=== PATIENT | female | born 2000 | race Caucasian/White ===

== ENCOUNTER 2023-08-13 09:34 | Outpatient (OUT) | payer OTHER, SELFPAY ==
--- NOTE | 2023-08-13 09:35 | US_ITS ---
[address] [address] Patient Name: RAY FOFANA MRN: [id number] date: 2000 Sex: F Assigned Patient Location: [facility] Current Patient Location: [facility] Accession/Order Number: [id number] Exam Date: 08/13/2023 09:35 Report Date: 08/13/2023 10:30 At the request of: ANU IVEY Procedure: US OB transvaginal EXAMINATION: US OB transvaginal HISTORY: MISSED MENSES COMPARISON: No relevant comparison available. FINDINGS: Transvaginal images Dasivla intrauterine gestation Gestational sac: 4.15 cm, 9 weeks 4 days CRL: 3.40 cm, 10 weeks 2 days Heart rate: 161 bpm Cervix: Closed, 4.6 cm The uterus is normal, anteverted, anteflexed The right ovary is normal. The left ovary is not visualized Clinical age: 10 weeks 6 days Clinical JARRELL: 03/04/2024 Ultrasound age: 10 weeks 2 days Ultrasound JARRELL: 03/08/2024 US/US OB transvaginal IMPRESSION: Viable dasilva intrauterine gestation measuring 10 weeks 2 days Electronically authenticated by: KIM VALE Date: 08/13/2023 10:30
== END 2023-08-13 09:35 | disposition home or self-care (01) ==
PROVIDERS: Visit Provider Obstetrics & Gynecology
DX: Z34.91 Encounter for supervision of normal pregnancy, unspecified, first trimester (principal); Z3A.10 10 weeks gestation of pregnancy; N92.6 Irregular menstruation, unspecified
CPT/HCPCS: 76817

== ENCOUNTER 2023-08-13 10:35 | Outpatient (OUT) | payer OTHER, SELFPAY ==
[2023-08-13 11:07] LABS: Basophils Percent Auto 0.4 % (0.2-2.0); Eosinophils Percent Auto 0.5 % (0.9-7.0); Estimated Average Glucose 100 mg/dL; Glycohemoglobin A1C 5.1 % (4.5-6.2); Hematocrit 38.1 % (36.0-48.0); Hemoglobin 13.1 g/dL (12.0-16.0); Immature Granulocytes Abs Auto 0.01 10^3/uL (0.00-0.03); Immature Granulocytes Pct Auto 0.1 % (0.0-0.5); Lymphocytes Absolute Auto 1.8 10^3/uL (1.2-3.8); Lymphocytes Percent Auto 24.2 % (20.5-60.0); Mean Corpuscular HGB Conc 34.4 g/dL (29.9-35.2); Mean Corpuscular Hemoglobin 30.3 pg (26.7-34.0); Mean Corpuscular Volume 88.2 fL (81.0-99.0); Mean Platelet Volume 9.5 fL (9.5-13.5); Monocytes Absolute Auto 0.6 10^3/uL (0.3-0.8); Monocytes Percent Auto 7.4 % (1.7-12.0); Neutrophils Percent Auto 67.4 % (43.0-75.0); Platelet Count 266 10^3/uL (150-450); Red Blood Count 4.32 10^6/uL (4.20-5.40); Red Cell Distribution Width 11.9 % (11.0-15.0); White Blood Count 7.4 10^3/uL (4.0-11.0)
[2023-08-14 06:10] LABS: Rubella Antibodies, IgG 1.24 index (Immune >0.99)
[2023-08-14 07:09] LABS: HBsAg Screen Negative (Negative); HCV Ab Non Reactive (Non Reactive); HIV Ab/p24 Ag Screen Non Reactive (Non Reactive)
[2023-08-14 11:12] LABS: Rapid Plasma Reagin, Quant Non Reactive titer (NonRea<1:1)
== END 2023-08-13 10:36 | disposition home or self-care (01) ==
LOC: LAB 10:38
PROVIDERS: Visit Provider Obstetrics & Gynecology
DX: Z34.91 Encounter for supervision of normal pregnancy, unspecified, first trimester (principal); Z3A.10 10 weeks gestation of pregnancy; Z36.0 Encounter for antenatal screening for chromosomal anomalies; N92.6 Irregular menstruation, unspecified
CPT/HCPCS: 36415; 76817; 83036; 85025; 86592; 86762; 86803; 86850; 86900; 86901; 87086; 87340; 87389

== ENCOUNTER 2023-09-28 21:18 | Outpatient (REF) | payer OTHER, SELFPAY ==
--- OUTSIDE RECORDS SUMMARY | 2023-09-28 21:22 | XMS_ITS | CCD ---
Author Organization [facility] Care Team Providers Care Acid Tester Name Role Phone Ivone Atkinson Attending Unavailable Dallas Singh Attending Unavailable Allergies Allergy Classification Reported Allergen(s) Allergy Type Date of Onset Reaction(s) Facility (1 source) No Known Medication Allergies; Translations: [No Known Medication Allergies] Propensity to adverse reactions (disorder) [facility] Repository Results Test Name Value Interpretation Reference Range [facility] Family Medicine Office/Clini c Noteon 01-18-2023 Family Medicine Office/Clinic Note Chief Complaint Pt in office with rash HPI Staff Duration: Yesterday New or Recurrent: new Location: diffuse Description: red raised, not painful Rash symptoms: itchy History of Present Illness Carol Ann Knight is a 22-year-old female here today for an acute visit with complaints of rash onset was yesterday. Location is diffuse to the body. Description is red, raised. She has some pruritus. She has been taking Benadryl. She has had similar rash in the past that generally is resolved with Benadryl. She denies any fevers, chills. No URI symptoms. No tongue or lip swelling. No shortness of breath. No joint pain. No known exposures?no new lotions/creams/shampoo s/detergents/perfumes. No different medications or food ingestion. No one else at home with rash. Review of Systems PHQ Score Initial Depression Screen Score: 0 ROS - Provider Constitutional: no fever, no chills, no sweats, no weakness' HEENT: no sore throat no ear pain no runny nose no congestion Respiratory: no shortness of breath, no cough Cardiovascular: no chest pain Skin: as per HPI GI: no nausea no emesis no diarrhea no constipation Physical Exam Vitals & Measurements T: 36.4 ?C(Temporal Artery) HR: 78(Peripheral) RR: 18 BP: 118/78 SpO2: 99% HT: 64 in HT: 162 cm WT: 123.5 kg WT: 271.7 lb BMI: 47.06 General: Obese female, no distress, sitting upright on exam table Eyes: Clear, normal conjunctiva, PERRLA Nose: Normal appearing, no rhinorrhea or swelling Mouth: Antigo moist mucous membranes and tongue, no oral lesions Neck: Supple, no stridor Lungs: Normal respiratory effort and clear to auscultation Cardio: Regular rate and rhythm, normal S1 and S2, no murmur, no rub Abdomen: Obese, soft Musculoskeletal: Steady independent gait Extremity: No swelling Neurologic: Grossly normal Skin: Generalized urticarial rash, erythematous and blanchable to arms, trunk, legs, and no rash to face Mental Status: Alert and oriented x3. Normal mood and affect Assessment/Plan 1. Urticarial rash (L50.9: Urticaria, unspecified) Unclear etiology of rash, likely allergic. Rx sent for prednisone taper. She will continue also her antihistamines. We discussed indications for urgent ER reevaluation. Otherwise, she will follow-up with primary team to reevaluate any persistent rash. 2. BMI 40.0-44.9, adult (Z68.41: Body mass index [BMI] 40.0-44.9, adult) The standard range for ages 18 and older is >=18.5 and < 25 kg/m2. Your BMI today was above this range, this falls in the overweight to obese category and there are medical benefits to weight loss. We can offer counselling, referral, and/or medical support in addressing this problem. Your BMI and weight management will be followed at subsequent visits. Portions of this record may have been created with voice recognition artificial intelligence software, specifically Peeky, [employer] and or CarbonFlow. Substitutions may have occurred due to the inherent limitations of voice recognition and artificial intelligence software. Follow-up No qualifying data available Problem List/Past Medical History Ongoing Viral illness Historical Procedure/Surgical History Cystectomy. Medications No active medications Allergies No Known Allergies No Known Medication Allergies Social History Alcohol - Denies Alcohol Use, 06/22/2019 Substance Abuse - Denies Substance Abuse, 06/22/2019 Tobacco - Denies Tobacco Use, 06/22/2019 Never (less than 100 in lifetime) Tobacco Use:. Never Smokeless Tobacco Use:., 01/16/2023 Family History Family history is negative Immunizations Vaccine Date Status influenza virus vaccine, inactivated 03/15/2022 Recorded SARS-CoV-2 (COVID-19) Ad26 vaccine 11/20/2021 Recorded SARS-CoV-2 (COVID-19) mRNA-1273 vaccine 11/08/2021 Recorded diphtheria/pertussis, acel/tetanus adult 01/12/2020 Given meningococcal conjugate vaccine 05/04/2017 Recorded human papillomavirus vaccine 05/04/2017 Recorded varicella virus vaccine 10/07/2011 Recorded diphtheria/pertussis, acel/tetanus adult 10/07/2011 Recorded meningococcal conjugate vaccine 10/07/2011 Recorded human papillomavirus vaccine 10/07/2011 Recorded influenza virus vaccine, inactivated 04/27/2009 Recorded poliovirus vaccine, inactivated 10/07/2004 Recorded measles/mumps/rubella virus vaccine 10/07/2004 Recorded DTaP, unspecified formulation 10/07/2004 Recorded varicella virus vaccine 02/16/2001 Recorded measles/mumps/rubella virus vaccine 02/16/2001 Recorded haemophilus b conj (PRP-OMP) vaccine 02/16/2001 Recorded DTaP, unspecified formulation 02/16/2001 Recorded hepatitis B pediatric vaccine 06/16/2000 Recorded poliovirus vaccine, inactivated 05/19/2000 Recorded haemophilus b conj (PRP-OMP) vaccine 05/19/2000 Recorded DTaP, unspecified formulation 05/19/2000 Recorded poliovirus vaccine, inactivated 02/18/2000 Recorded hepatitis B pediatric vaccine 02/18/2000 Recorded (more content not included)... Normal [facility] Comment on above: Result Comment: Electronically Signed By : Louann MARCUS CNP\.kaitlin\Date and Time Signed: 01/18/23 16:04 EDT Encounters Encounter Date Encounter Type Care Provider Facility Start: 08-13-2023 End: 08-13-2023 ambulatory Not Available Start: 04-21-2023 ambulatory Ivone Hopper y:KEV Cabrera Start: 01-16-2023 End: 01-17-2023 ambulatory Dallas Singh Facility:[facility] Payers Date Payer Category Payer Medicaid [id number] 2021 Unknown [id number] 2000 Unknown [id number] 2.16.8 [id number] 1999 Unknown [id number] 2.16.8 [id number] 1999 Unknown [id number] 2.16.84 [id number] Summary Purpose Family History No Family History Records FoundNo Family History Records Found Advance Directives No Advanced Directives Records FoundNo Advanced Directives Records Found Additional Source Comments INFORMATION SOURCE (unrecogn ized section and content) DATE CREATED AUTHOR 04/19/[address] [facility] DATE CREATED AUTHOR AUTHORKarina RIDER 09/15/2023 [facility] dical Specialists [facility] FOR RECORDS PERTAINING TO PATIENTS WHO ARE OR HAVE BEEN ENROLLED IN A CHEMICAL DEPENDENCY/SUBSTANCEABUSE PROGRAM, SOME INFORMATION MAY BE OMITTED. This clinical summary was aggregated from multiple sources. Caution should be exercised in using it in the provision of clinical care. This summary normalizes information from multiple sources, and as a consequence, information in this document may materially change the coding, format and clinical context of patient data. In addition, data may be omitted in some cases. CLINICAL DECISIONS SHOULD BE BASED ON THE PRIMARY CLINICAL RECORDS. [facility] [employer] [facility]. provides no warranty or guarantee of the accuracy or completeness of information in this document.
[2023-10-03 13:07] LABS: Age Gdln ACOG Testing Note (.); IGP, rfx Aptima HPV ASCU Note (.)
== END 2023-09-28 21:19 | disposition home or self-care (01) ==
LOC: LAB 21:18
PROVIDERS: Visit Provider Obstetrics & Gynecology
DX: Z01.419 Encounter for gynecological examination (general) (routine) without abnormal findings (principal)
CPT/HCPCS: G0145

== ENCOUNTER 2023-10-18 14:33 | Outpatient (OUT) | payer OTHER, SELFPAY ==
--- NOTE | 2023-10-18 14:35 | US_ITS ---
[address] [address] Patient Name: RAY FOFANA MRN: [facility]:[id number] date: 2000 Sex: F Assigned Patient Location: [facility] Current Patient Location: [facility] Accession/Order Number: [id number] Exam Date: 10/18/2023 14:40 Report Date: 10/18/2023 15:39 At the request of: ANU IVEY Procedure: US OB anatomy EXAMINATION: US OB anatomy, US OB cervical length HISTORY: anatomic survey Z36.89 COMPARISON: 08/13/2023 TECHNIQUE: Transabdominal sonographic examination was performed for obstetrical and evaluation. FINDINGS: Number: 1 Heart Rate: 138.0 bpm H.B. /min Amniotic Fluid Volume: Subjectively normal position: Cephalic presentation, variable lie Placental Location: Posterior. The placental edge is 3.4 cm from the internal os. Grade 0 Cervix Length: 4.8 cm, closed Normal anatomy: Lateral ventricles, cerebellum, posterior fossa, orbits, four-chamber heart, diaphragm, stomach, kidneys, abdominal cord insertion, bladder, umbilical arteries, three-vessel cord, extremities Suboptimal visualization: Nose, lips, spine Nonvisualization: RVOT, LVOT BIOMETRY: BPD: 4.4 cm 19 weeks 1 days , 11% HC: 14.8 cm 17 weeks 6 days, less than 3% AC: 14.6 cm 19 weeks 6 days, 32% FL: 3.2 cm 19 weeks 6 days , 27% EFW:305.9 grams; 11 ounces, 16% FL/AC: 21.7 FL/BPD: 72.7 HC/AC: 1.0 GESTATIONAL AGE: Age by EDC: 20 weeks 2 days JARRELL by EDC: 03/04/2024 Age by current US: 19 weeks 1 days JARRELL by current US: 03/12/2024 US/US OB anatomy IMPRESSION: Low lying placenta, the placental edge is 3.4 cm from the internal os Suboptimal in nonvisualization detailed above Closed cervix measuring 4.8 cm in length *Reference: AIUM Practice Guideline for the performance of Obstetric Ultrasound Examinations, March 14, 2007. Electronically authenticated by: KIM VALE Date: 10/18/2023 15:39
--- NOTE | 2023-10-18 14:35 | US_ITS ---
[address] [address] Patient Name: RAY FOFANA MRN: [facility]:[id number] date: 2000 Sex: F Assigned Patient Location: [facility] Current Patient Location: [facility] Accession/Order Number: [id number] Exam Date: 10/18/2023 14:40 Report Date: 10/18/2023 15:39 At the request of: ANU IVEY Procedure: US OB cervical length EXAMINATION: US OB anatomy, US OB cervical length HISTORY: anatomic survey Z36.89 COMPARISON: 08/13/2023 TECHNIQUE: Transabdominal sonographic examination was performed for obstetrical and evaluation. FINDINGS: Number: 1 Heart Rate: 138.0 bpm H.B. /min Amniotic Fluid Volume: Subjectively normal position: Cephalic presentation, variable lie Placental Location: Posterior. The placental edge is 3.4 cm from the internal os. Grade 0 Cervix Length: 4.8 cm, closed Normal anatomy: Lateral ventricles, cerebellum, posterior fossa, orbits, four-chamber heart, diaphragm, stomach, kidneys, abdominal cord insertion, bladder, umbilical arteries, three-vessel cord, extremities Suboptimal visualization: Nose, lips, spine Nonvisualization: RVOT, LVOT BIOMETRY: BPD: 4.4 cm 19 weeks 1 days , 11% HC: 14.8 cm 17 weeks 6 days, less than 3% AC: 14.6 cm 19 weeks 6 days, 32% FL: 3.2 cm 19 weeks 6 days , 27% EFW:305.9 grams; 11 ounces, 16% FL/AC: 21.7 FL/BPD: 72.7 HC/AC: 1.0 GESTATIONAL AGE: Age by EDC: 20 weeks 2 days JARRELL by EDC: 03/04/2024 Age by current US: 19 weeks 1 days JARRELL by current US: 03/12/2024 US/US OB cervical length IMPRESSION: Low lying placenta, the placental edge is 3.4 cm from the internal os Suboptimal in nonvisualization detailed above Closed cervix measuring 4.8 cm in length *Reference: AIUM Practice Guideline for the performance of Obstetric Ultrasound Examinations, March 14, 2007. Electronically authenticated by: KIM VALE Date: 10/18/2023 15:39
== END 2023-10-18 14:34 | disposition home or self-care (01) ==
LOC: NOMS 14:33
PROVIDERS: Visit Provider Obstetrics & Gynecology
DX: Z36.89 Encounter for other specified antenatal screening (principal); O44.42 Low lying placenta NOS or without hemorrhage, second trimester; Z3A.19 19 weeks gestation of pregnancy
CPT/HCPCS: 76805; 76817

== ENCOUNTER 2023-10-26 14:04 | Outpatient (OUT) | payer OTHER, SELFPAY ==
[2023-10-28 01:07] LABS: AFP Value 48.5 ng/mL (.); Gest. Age on Collection Date 21.4 weeks (.); Insulin Dep Diabetes No (.); Maternal Age At EDD 24.4 yr (.); OSBR Risk 1 IN 10000 (.); Results Report (.)
== END 2023-10-26 14:05 | disposition home or self-care (01) ==
LOC: LAB 14:05
PROVIDERS: Visit Provider Obstetrics & Gynecology
DX: Z34.92 Encounter for supervision of normal pregnancy, unspecified, second trimester (principal); Z3A.17 17 weeks gestation of pregnancy
CPT/HCPCS: 36415; 82105

== ENCOUNTER 2023-11-15 11:03 | Outpatient (OUT) | payer OTHER, SELFPAY ==
--- NOTE | 2023-11-15 11:07 | US_ITS ---
[address] [address] Patient Name: RAY FOFANA MRN: [facility]:[id number] date: 2000 Sex: F Assigned Patient Location: [facility] Current Patient Location: [facility] Accession/Order Number: [id number] Exam Date: 11/15/2023 11:07 Report Date: 11/15/2023 11:52 At the request of: ANU IVEY Procedure: US OB incomplete anatomy EXAM: US OB incomplete anatomy HISTORY: INCOMPLETE ANATOMY COMPARISON: Ultrasound OB anatomy 10/18/2023 TECHNIQUE: Transabdominal ultrasound FINDINGS: Heart rate: 141 bpm Presentation: Breech Anatomy: Hard palate, four-chamber heart, LVOT, RVOT C-spine, T-spine, L-spine; no appreciable abnormality. GA: 24 weeks 2 days JARRELL: 03/04/2024 US/US OB incomplete anatomy IMPRESSION: 1. Single live intrauterine . 2. Adequate visualization and no appreciable abnormality of the hard palate, four-chamber heart, cardiac outflow tracts, and spine. Electronically authenticated by: MARANDA ABRAHAM Date: 11/15/2023 11:52
== END 2023-11-15 11:04 | disposition home or self-care (01) ==
LOC: NOMS 11:05
PROVIDERS: Visit Provider Obstetrics & Gynecology
DX: Z36.2 Encounter for other antenatal screening follow-up (principal); Z3A.24 24 weeks gestation of pregnancy
CPT/HCPCS: 76815

== ENCOUNTER 2023-11-30 11:36 | Outpatient (OUT) | payer OTHER, SELFPAY ==
[2023-11-30 12:53] LABS: Basophils Percent Auto 0.3 % (0.2-2.0); Eosinophils Absolute Auto 0.1 10^3/uL (0.0-0.7); Eosinophils Percent Auto 0.7 % (0.9-7.0); Hematocrit 34.1 % (36.0-48.0); Hemoglobin 11.3 g/dL (12.0-16.0); Immature Granulocytes Abs Auto 0.04 10^3/uL (0.00-0.03); Immature Granulocytes Pct Auto 0.4 % (0.0-0.5); Lymphocytes Absolute Auto 1.7 10^3/uL (1.2-3.8); Lymphocytes Percent Auto 18.2 % (20.5-60.0); Mean Corpuscular HGB Conc 33.1 g/dL (29.9-35.2); Mean Corpuscular Hemoglobin 29.7 pg (26.7-34.0); Mean Corpuscular Volume 89.7 fL (81.0-99.0); Mean Platelet Volume 9.5 fL (9.5-13.5); Monocytes Absolute Auto 0.6 10^3/uL (0.3-0.8); Monocytes Percent Auto 6.4 % (1.7-12.0); Neutrophils Absolute Auto 6.8 10^3/uL (1.4-6.5); Platelet Count 252 10^3/uL (150-450); Red Cell Distribution Width 12.7 % (11.0-15.0); White Blood Count 9.2 10^3/uL (4.0-11.0)
[2023-11-30 12:57] LABS: Glucose 1 Hour 135 mg/dL (<130)
== END 2023-11-30 11:37 | disposition home or self-care (01) ==
LOC: LAB 11:37
PROVIDERS: Visit Provider Obstetrics & Gynecology
DX: Z13.1 Encounter for screening for diabetes mellitus (principal)
CPT/HCPCS: 36415; 82950; 85025

== ENCOUNTER 2023-12-07 07:59 | Outpatient (OUT) | payer OTHER, SELFPAY ==
--- OUTSIDE RECORDS SUMMARY | 2023-12-07 08:03 | XMS_ITS | CCD ---
Author Organization [facility] Care Team Providers Care Legal Arbitrator Name Role Phone Ivone Atkinson Attending Dallas Aldana Attending Unavailable ANU IVEY Attending Unavailable HEATHER MCGOVERN Attending ANU Buenrostro Attending Unavailable Allergies Allergy Classification Reported Allergen(s) Allergy Type Date of Onset Reaction(s) Facility (1 source) No Known Medication Allergies; Translations: [No Known Medication Allergies] Propensity to adverse reactions (disorder) [facility] Repository Results Test Name Value Interpretation Reference Range [facility] Family Medicine Office/Clini c Noteon 01-18-2023 Family [...] Normal appearing, no rhinorrhea or swelling Mouth: Rhame moist mucous membranes and tongue, no oral [...] with voice recognition artificial intelligence software, specifically [employer], Sisteer and or Sulfagenix. Substitutions may have occurred due to the [...] 02/18/2000 Recorded (more content not included)... Normal [facility] Comment on above: Result Comment: Electronically Signed By : Louann MARCUS CNP\.kaitlin\Date and Time Signed: 01/18/23 16:04 EDT Encounters Encounter Date Encounter Type Care Provider Facility Start: 11-23-2023 End: 11-23-2023 ambulatory ANU IVEY Not Available Start: 10-26-2023 End: 10-26-2023 ambulatory HEATHER MCGOVERN Not Available Start: 09-28-2023 End: 09-28-2023 ambulatory ANU UCHE Not Available Start: 08-13-2023 End: 08-13-2023 ambulatory ANU UCHE Not Available Start: 04-21-2023 ambulatory Ivone Hopper y:KEV Cabrera Start: 01-16-2023 End: 01-17-2023 ambulatory Dallas Singh Facility:[facility] Payers Date Payer Category Payer Medicaid [id number] 2021 Unknown [id number] 2000 Unknown [id number] 2.16.8 [id number] 1999 Unknown [id number] 2.16.8 [id number] 1999 Unknown [id number] 2.16.84 [id number] 1999 Unknown [id number] 2.16.84 0.1.529543.3.579.2.1259 1999 Unknown [id number] 2.16.84 0.1.875468.3.579.2.1259 1999 Unknown [id number] 2.16.84 [id number] Summary Purpose Family History No Family History Records FoundNo Family History Records Found Advance Directives No Advanced Directives Records FoundNo Advanced Directives Records Found Additional Source Comments INFORMATION SOURCE (unrecogn ized section and content) DATE CREATED AUTHOR 04/19/2023 [facility] DATE CREATED AUTHOR AUTHORKarina RIDER 11/23/2023 [facility] dicny Specialists [facility] FOR RECORDS PERTAINING TO PATIENTS WHO [...] BE BASED ON THE PRIMARY CLINICAL RECORDS. [facility] [employer] [facility]. provides no warranty or guarantee of the accuracy or completeness of information in this document.
[2023-12-07 09:20] LABS: Glucose Fasting 116 mg/dL (<95)
[2023-12-07 09:56] LABS: Glucose 1 Hour 150 mg/dL (<180)
[2023-12-07 10:24] LABS: Glucose 2 Hour 130 mg/dL (<155)
[2023-12-07 11:33] LABS: Glucose 3 Hour 108 mg/dL (<140)
== END 2023-12-07 08:00 | disposition home or self-care (01) ==
LOC: LAB 07:59
PROVIDERS: Visit Provider Obstetrics & Gynecology
DX: R73.09 Other abnormal glucose (principal)
CPT/HCPCS: 36415; 82951; 82952

== ENCOUNTER 2024-02-10 10:31 | Outpatient (OUT) | payer OTHER, SELFPAY ==
--- NOTE | 2024-02-10 10:32 | US_ITS ---
[address] [address] Patient Name: RAY FOFANA MRN: [id number] date: 2000 Sex: F Assigned Patient Location: [facility] Current Patient Location: [facility] Accession/Order Number: [id number] Exam Date: 02/10/2024 10:33 Report Date: 02/10/2024 11:08 At the request of: ANU IVEY Procedure: US OB growth EXAMINATION: US OB growth HISTORY: Excessive growth O36.60X0 COMPARISON: No relevant comparison available. FINDINGS: Heart Rate: 160 bpm Amniotic Fluid Volume: 11.0 cm, largest fluid pocket 4.5 cm Number: 1 Position: Cephalic presentation, longitudinal lie BIOMETRY: BPD: 9.41 cm; 38 weeks 2 days; 93.60 % HC: 33.85 cm; 38 weeks 6 days; 74.70 % AC: 34.54 cm; 38 weeks 3 days; 94.80 % FL: 7.28 cm; 37 weeks 2 days; 62.60 % EFW: 3480.91 g; 88.90 %, 7 lbs. 9 oz. FL/AC: 21.08 FL/BPD: 77.36 HC/AC: 0.98 GESTATIONAL AGE: Age by EDC: 36 weeks 5 days JARRELL by EDC: 2024-03-04 Age by US: 38 weeks 2 days JARRELL by US: 2024-02-22 US/US OB growth IMPRESSION: Abdominal circumference at the 95th percentile BPD at the 94th percentile Electronically authenticated by: KIM VALE Date: 02/10/2024 11:08
--- OUTSIDE RECORDS SUMMARY | 2024-02-10 10:54 | XMS_ITS | CCD ---
Author Organization [facility] Care Team Providers Care Direct Of Real Estate Name Role Phone Ivone Atkinson Attending Unavailable Dallas Singh Attending Unavailable UCHE, ANU Attending Unavailable HEATHER MCGOVERN Attending Unavailable UCHE, ANU Attending Unavailable UCHE, ANU Attending Unavailable SHANIQUA, HEATHER Attending Unavailable SHANIQUA, HEATHER Attending Unavailable UCHE, ANU Attending Unavailable Allergies Allergy Classification Reported Allergen(s) Allergy Type Date of Onset Reaction(s) Facility (1 source) No Known Medication Allergies; Translations: [No Known Medication Allergies] Propensity to adverse reactions (disorder) [facility] Repository Results Test Name Value Interpretation Reference Range [facility] it Family Medicine Office/Clini c Noteon 01-18-2023 Family [...] Normal appearing, no rhinorrhea or swelling Mouth: [place] moist mucous membranes and tongue, no oral [...] with voice recognition artificial intelligence software, specifically Ticketmaster, CarePoint [employer] and or Edupath. Substitutions may have occurred due to the [...] (more content not included)... Normal [facility] Comment on above: Result Comment: Electronically Signed By : Louann MARCUS CNP\.kaitlin\Date and Time Signed: 01/18/23 16:04 EDT Encounters Encounter Date Encounter Type Care Provider Facility Start: 01-27-2024 End: 01-27-2024 ambulatory ANU IVEY Not Available Start: 01-13-2024 End: 01-13-2024 ambulatory HEATHER MCGOVERN Not Available Start: 12-28-2023 End: 12-28-2023 ambulatory HEATHER MCGOVERN Not Available Start: 12-14-2023 End: 12-14-2023 ambulatory ANU UCHE Not Available Start: 11-23-2023 End: 11-23-2023 ambulatory ANU UCHE Not Available Start: 10-26-2023 End: 10-26-2023 ambulatory HEATHER MCGOVERN Not Available Start: 09-28-2023 End: 09-28-2023 ambulatory ANU UCHE Not Available Start: 08-13-2023 End: 08-13-2023 ambulatory ANU UCHE Not Available Start: 04-21-2023 ambulatory Ivone TiptonSienna Atkinson Facilit y:[facility] Start: 01-16-2023 End: 01-17-2023 ambulatory Dallas Singh Facility:[facility] Payers Date Payer Category Payer Medicaid [id number] 2021 Unknown [id number] 2000 Unknown [id number] 2.16.8 [id number] 1999 Unknown [id number] 2.16.8 40.1.793414.3.579.2.727 1999 Unknown [id number] 2.16.84 0.1.653751.3.579.2.9 1999 Unknown [id number] 2.16.84 0.1.562866.3.579.2.1259 1999 Unknown [id number] 2.16.84 0.1.150233.3.579.2.1258 1999 Unknown [id number] 2.16.84 0.1.472487.3.579.2.1259 1999 Unknown [id number] 2.16.84 0.1.523427.3.579.2.1258 1999 Unknown [id number] 2.16.84 0.1.269520.3.579.2.1259 1999 Unknown [id number] 2.16.84 0.1.794184.3.579.2.1258 1999 Unknown [id number] 2.16.84 0.1.604825.3.579.2.1259 Summary Purpose Family History No Family History Records FoundNo Family History Records Found Advance Directives No Advanced Directives Records FoundNo Advanced Directives Records Found Additional Source Comments INFORMATION SOURCE (unrecogn ized section and content) DATE CREATED AUTHOR 04/19/2023 [facility] DATE CREATED AUTHOR AUTHORKarina JOLYNNALON ZACHARYHINA 01/28/2024 [facility] dical Specialists [facility] FOR RECORDS PERTAINING TO PATIENTS WHO ARE [...] BE BASED ON THE PRIMARY CLINICAL RECORDS. [facility] [employer] [facility]. provides no warranty or guarantee of the accuracy or completeness of information in this document.
== END 2024-02-10 10:32 | disposition home or self-care (01) ==
LOC: NOMS 10:31
PROVIDERS: Visit Provider Obstetrics & Gynecology
DX: O36.63X0 Maternal care for excessive fetal growth, third trimester, not applicable or unspecified (principal); Z3A.38 38 weeks gestation of pregnancy
CPT/HCPCS: 76816

== ENCOUNTER 2024-02-10 18:59 | Outpatient (REF) | payer OTHER, SELFPAY ==
--- OUTSIDE RECORDS SUMMARY | 2024-02-10 19:03 | XMS_ITS | CCD ---
Author Organization [facility] Care Team Providers Care Doctor Of Chiropractic Name Role Phone Ivone Atkinson Attending Unavailable [...] Medication Allergies] Propensity to adverse reactions (disorder) [facility] Repository Results Test Name Value Interpretation Reference Range [facility] it Family Medicine Office/Clini c Noteon [...] Normal appearing, no rhinorrhea or swelling Mouth: Lydia moist mucous membranes and tongue, no oral [...] with voice recognition artificial intelligence software, specifically SageFire, [employer] and or WinFreeCandy. Substitutions may have occurred due to the [...] 02/18/2000 Recorded (more content not included)... Normal [facility] Comment on above: Result Comment: Electronically Signed [...] Start: 01-16-2023 End: 01-17-2023 ambulatory Dallas Singh Facility:[facility] Payers Date Payer Category Payer Medicaid [id number] 2021 Unknown [id number] 2000 Unknown [id number] 2.16.8 40.1.396092.3.579.2.727 1999 Unknown [id number] 2.16.8 40.1.319854.3.579.2.727 1999 Unknown [id number] 2.16.84 0.1.250150.3.579.2.9 1999 Unknown [id number] 2.16.84 0.1.806338.3.579.2.1259 1999 Unknown [id number] 2.16.84 0.1.516644.3.579.2.1258 1999 Unknown [id number] 2.16.84 0.1.985750.3.579.2.1259 1999 Unknown [id number] 2.16.84 0.1.515062.3.579.2.1258 1999 Unknown [id number] 2.16.84 0.1.540689.3.579.2.1259 1999 Unknown [id number] 2.16.84 0.1.245583.3.579.2.1258 1999 Unknown [id number] 2.16.84 0.1.862830.3.579.2.1259 Summary Purpose Family History No Family History Records FoundNo Family History Records Found Advance Directives No Advanced Directives Records FoundNo Advanced Directives Records Found Additional Source Comments INFORMATION SOURCE (unrecogn ized section and content) DATE CREATED AUTHOR 04/19/2023 [facility] DATE CREATED AUTHOR AUTHORKarina JOLYNNALON ZACHARYHINA 01/28/2024 [facility] dical Specialists [facility] FOR RECORDS PERTAINING TO PATIENTS WHO [...] BE BASED ON THE PRIMARY CLINICAL RECORDS. [facility] [employer] [facility]. provides no warranty or guarantee of the accuracy or completeness of information in this document.
== END 2024-02-10 19:00 | disposition home or self-care (01) ==
LOC: LAB 18:59
PROVIDERS: Visit Provider Physician Assistant
DX: Z34.93 Encounter for supervision of normal pregnancy, unspecified, third trimester (principal)
CPT/HCPCS: 87081; 87150

== ENCOUNTER 2024-03-07 05:03 | Inpatient (IN) | payer OTHER, SELFPAY ==
[2024-03-07] VITALS (39 sets, daily range): BP systolic 113–198; BP diastolic 59–92; PULSE 85–136; TEMP 36.2–37.3
--- OUTSIDE RECORDS SUMMARY | 2024-03-07 05:07 | XMS_ITS | CCD ---
Author Organization [facility] Care Team Providers Care Mainframe Systems Engineer Name Role Phone Ivone Atkinson Attending Unavailable FranciscoDallas david Attending Unavailable UCHE, ANU Attending Unavailable SHANIQUA, HEATHER Attending Unavailable UCHE, ANU Attending Unavailable UCHE, ANU Attending Unavailable SHANIQUA, HEATHER Attending Unavailable SHANIQUA, HEATHER Attending Unavailable UCHE, ANU Attending Unavailable SHANIQUA, HEATHER Attending Unavailable UCHE, ANU Attending Unavailable SHANIQUA, HEATHER Attending Unavailable SHANIQUA, HEATHER Attending Unavailable Allergies Allergy Classification Reported Allergen(s) Allergy Type Date of Onset Reaction(s) Facility (1 source) No Known Medication Allergies; Translations: [No Known Medication Allergies] Propensity to adverse reactions (disorder) [facility] Repository Results Test Name Value Interpretation Reference Range Facil ity Family Medicine Office/Clini c Noteon 01-18-2023 Family [...] Normal appearing, no rhinorrhea or swelling Mouth: [place] moist mucous membranes and tongue, no oral [...] with voice recognition artificial intelligence software, specifically [employer] and or [employer]. Substitutions may have occurred due to the [...] (more content not included)... Normal [facility] Comment on above: Result Comment: Electronically Signed By : Louann MARCUS CNP\chayito\Date and Time Signed: 01/18/23 16:04 EDT Encounters Encounter Date Encounter Type Care Provider Facility Start: 02-28-2024 End: 02-28-2024 ambulatory HEATHER MCGOVERN Not Available Start: 02-23-2024 End: 02-23-2024 ambulatory HEATHER SHANIQUA Not Available Start: 02-17-2024 End: 02-17-2024 ambulatory ANU UCHE Not Available Start: 02-10-2024 End: 02-10-2024 ambulatory HEATHER SHANIQUA Not Available Start: 01-27-2024 End: 01-27-2024 ambulatory ANU UCHE Not Available Start: 01-13-2024 End: 01-13-2024 ambulatory HEATHER SHANIQUA Not Available Start: 12-28-2023 End: 12-28-2023 ambulatory HEATHER SHANIQUA Not Available Start: 12-14-2023 End: 12-14-2023 ambulatory ANU UCHE Not Available Start: 11-23-2023 End: 11-23-2023 ambulatory ANU UCEH Not Available Start: 10-26-2023 End: 10-26-2023 ambulatory HEATHER SHANIQUA Not Available Start: 09-28-2023 End: 09-28-2023 ambulatory ANU UCHE Not Available Start: 08-13-2023 End: 08-13-2023 ambulatory ANU UCHE Not Available Start: 04-21-2023 ambulatory Ivone Atkinson Facilit y:[facility] [place] Start: 01-16-2023 End: 01-17-2023 ambulatory Dallas Singh Facility:[facility] Payers Date Payer Category Payer Medicaid [id number] 2021 Unknown [id number] 1999 Unknown [id number] 2.16.8 [id number] 1999 Unknown [id number] 2.16.8 [id number] 1999 Unknown [id number] 2.16.84 0.1.937151.3.579.2.9 1999 Unknown [id number] 2.16.84 0.1.591451.3.579.2.9 1999 Unknown [id number] 2.16.84 0.1.089820.3.579.2.1259 1999 Unknown [id number] 2.16.84 0.1.691533.3.579.2.1259 1999 Unknown [id number] 2.16.84 0.1.346694.3.579.2.9 1999 Unknown [id number] 2.16.84 0.1.014972.3.579.2.1259 1999 Unknown [id number] 2.16.84 0.1.394288.3.579.2.1259 1999 Unknown [id number] 2.16.84 0.1.036865.3.579.2.9 1999 Unknown [id number] 2.16.84 0.1.630956.3.579.2.9 1999 Unknown [id number] 2.16.84 0.1.669773.3.579.2.9 1999 Unknown [id number] 2.16.84 0.1.004835.3.579.2.9 1999 Unknown [id number] 2.16.84 0.1.456163.3.579.2.1259 Summary Purpose Family History No Family History Records FoundNo Family History Records Found Advance Directives No Advanced Directives Records FoundNo Advanced Directives Records Found Additional Source Comments INFORMATION SOURCE (unrecogn ized section and content) DATE CREATED AUTHOR 04/19/2023 [facility] DATE CREATED AUTHOR AUTHORKarina RIDER 02/29/2024 [facility] FOR RECORDS PERTAINING TO PATIENTS WHO ARE [...] BE BASED ON THE PRIMARY CLINICAL RECORDS. [employer] [facility]. provides no warranty or guarantee of the accuracy or completeness of information in this document.
[2024-03-07 05:40] LABS: Hemoglobin 10.6 g/dL (12.0-16.0); Mean Corpuscular HGB Conc 32.1 g/dL (29.9-35.2); Mean Corpuscular Volume 84.2 fL (81.0-99.0); Mean Platelet Volume 11.3 fL (9.5-13.5); Platelet Count 231 10^3/uL (150-450); Red Blood Count 3.92 10^6/uL (4.20-5.40); Red Cell Distribution Width 13.4 % (11.0-15.0); White Blood Count 8.4 10^3/uL (4.0-11.0)
[2024-03-07 05:53] LABS: Amphetamine Screen Urine NEGATIVE (NEGATIVE); Barbiturates Screen Urine NEGATIVE (NEGATIVE); Benzodiazepines Screen Urine NEGATIVE (NEGATIVE); Buprenorphine Screen Urine NEGATIVE (NEGATIVE); Cannabinoid Screen Urine NEGATIVE (NEGATIVE); Cocaine Screen Urine NEGATIVE (NEGATIVE); Methadone Screen Urine NEGATIVE (NEGATIVE); Methamphetamines Screen Urine NEGATIVE (NEGATIVE); Opiate Screen Urine NEGATIVE (NEGATIVE); Oxycodone Screen Urine NEGATIVE (NEGATIVE); Phencyclidine Screen Urine NEGATIVE (NEGATIVE); Tricyclic Antidepressant Urine NEGATIVE (NEGATIVE)
[2024-03-07] MEDS: 0.9 % SODIUM CHLORIDE 1,000 ML 125 ML IV ×2 (05:57→13:34)
[2024-03-07] MEDS: OXYTOCIN/0.9 % SODIUM CHLORIDE 10 UNITS/500 ML PLAST..BAG 6 UNIT IV (06:15)
[2024-03-07] MEDS: NALBUPHINE HCL 10 MG/ML AMPULE IV (13:39)
[2024-03-07] MEDS: OXYTOCIN/0.9 % SODIUM CHLORIDE 20 UNITS/1,000 ML PLAST..BAG 125 UNIT IV (15:25)
[2024-03-07] MEDS: LIDOCAINE HCL 1% 200 MG/20 ML MDV INJ (15:28)
--- NOTE | 2024-03-07 15:41 | PM.OBPRCVD ---
Procedure Intrapartal events: None Induction method: per pitocin protocol Delivery augmentation: rupture of membranes and pitocin Delivery monitor: external FHT and external uterine Route of delivery: Episiotomy Description: none L&D Laceration Description: perineal - 2nd degree Delivery repair: Vicryl Estimated blood loss (mL): 250 Anesthesia type: Epidural Disposition: floor Infant Delivery date: 03/07/24 Gender: female presentation: vertex Placental delivery description: Spontaneous cord description: 3 Vessels
[2024-03-07] MEDS: BENZOCAINE/MENTHOL 85 GRAM SPRAY BOTTLE 1 APPLIC TOPICAL (16:14)
[2024-03-07] MEDS: GLYCERIN/WITCH HAZEL PADS 1 PAD TOPICAL (16:14)
[2024-03-08 00:02] VITALS: BP 129/76; PULSE 106; TEMP 36.7
[2024-03-08 06:16] LABS: Basophils Percent Auto 0.3 % (0.2-2.0); Eosinophils Absolute Auto 0.1 10^3/uL (0.0-0.7); Eosinophils Percent Auto 0.5 % (0.9-7.0); Hematocrit 27.5 % (36.0-48.0); Hemoglobin 9.1 g/dL (12.0-16.0); Immature Granulocytes Abs Auto 0.05 10^3/uL (0.00-0.03); Immature Granulocytes Pct Auto 0.4 % (0.0-0.5); Lymphocytes Absolute Auto 2.7 10^3/uL (1.2-3.8); Lymphocytes Percent Auto 22.8 % (20.5-60.0); Mean Corpuscular HGB Conc 33.1 g/dL (29.9-35.2); Mean Corpuscular Hemoglobin 27.5 pg (26.7-34.0); Mean Corpuscular Volume 83.1 fL (81.0-99.0); Mean Platelet Volume 10.9 fL (9.5-13.5); Monocytes Absolute Auto 1.2 10^3/uL (0.3-0.8); Monocytes Percent Auto 10.3 % (1.7-12.0); Neutrophils Absolute Auto 7.7 10^3/uL (1.4-6.5); Neutrophils Percent Auto 65.7 % (43.0-75.0); Platelet Count 208 10^3/uL (150-450); Red Blood Count 3.31 10^6/uL (4.20-5.40); Red Cell Distribution Width 13.8 % (11.0-15.0); White Blood Count 11.7 10^3/uL (4.0-11.0)
--- NOTE | 2024-03-08 07:51 | P.OBPN_ITS ---
OB - PN: Subj Subjective Patient comments: no complaints and pain well controlled [place] status: doing well Exam Constitutional Vital Signs, click to edit/add: Last Vital Signs Temp 98.1 F 03/08/24 00:02 Pulse 106 H 03/08/24 00:02 Resp 16 03/08/24 00:02 BP 129/76 03/08/24 00:02 O2 Del Method Room Air 03/08/24 00:02 Documenting provider has reviewed patient's vital signs: yes Common normals: no apparent distress Respiratory Common normals: normal respiratory effort and clear to auscultation bilaterally Cardio Common normals: regular rate and regular rhythm GI Common normals: Normal to inspection, nondistended, normoactive bowel sounds present Extremity Common normals: no clubbing, cyanosis or edema and no calf tenderness Results Labs Labs: Short CBC 03/08/24 Range/Units 06:09 WBC 11.7 H (4.0-11.0) 10^3/uL Hgb 9.1 L (12.0-16.0) g/dL Hct 27.5 L (36.0-48.0) % Plt Count 208 (150-450) 10^3/uL OB - PN: A/P Plan - Vaginal Delivery day: 1 Plan: routine care Time Spent with Patient Time: Total time spent is greater than 50% in coordination of care (as documented) at patient's floor/unit and/or counseling patient: Total time spent with greater than 50% in coordination of care (as documented) at patient's floor/unit and/or counseling patient: less than 15 minutes
--- NOTE | 2024-03-08 07:52 | PC.NURSE ---
report received from Meron Mcqueen RN
[2024-03-08] MEDS: DOCUSATE SODIUM 100 MG CAPSULE PO ×2 (09:11→22:12)
[2024-03-08 09:12] VITALS: PULSE 93; TEMP 36.4
[2024-03-08 09:13] VITALS: BP 124/62; PULSE 93
--- NOTE | 2024-03-08 09:38 | PC.NURSE ---
RN educates patient to call out for RN to observe latch today and patient agrees to do so. clinical science consultant at bedside at this time.
--- NOTE | 2024-03-08 10:02 | PC.NURSE ---
support follow up on Wednesday03/14/2024 at 12:45pm at [facility] unit at [facility].
--- NOTE | 2024-03-08 11:16 | PC.NURSE ---
0945 into room, mother states going well. Past history of first child latching poorly, mom pumped and fed until she became overwhelmed with the workload of pumping. Plan to directly breastfeed for as long as possible. Is using [employer] for collection and is obtaining up to 15 ml of colostrum while baby is nursing at other breast. Mom reports I was a great milk maker . Infant currently asleep in open crib, noted to have evidence of colostrum around mouth. No further question at this time. Mom open to follow up appointment for support and appoinment scheduled fo 03/14/2024 at 1245 with KAREN.
[2024-03-08 14:03] VITALS: BP 123/71; PULSE 103; TEMP 36.7
--- NOTE | 2024-03-08 16:58 | PC.NURSE ---
Occupational therapy at bedside for discussion of with education.
[2024-03-08 22:09] VITALS: BP 137/85; PULSE 102
[2024-03-08 22:20] VITALS: PULSE 102; TEMP 36.4
[2024-03-09 07:15] VITALS: BP 132/71; PULSE 93
[2024-03-09 08:00] VITALS: TEMP 36.6
--- NOTE | 2024-03-09 08:31 | PM.OBPN ---
OB - PN: Subj Subjective Patient comments: no complaints and pain well controlled [place] status: doing well Exam Constitutional Vital Signs, click to edit/add: Last Vital Signs Temp 97.9 F 03/09/24 08:00 Pulse 93 H 03/09/24 07:15 Resp 18 03/09/24 08:06 BP 132/71 03/09/24 07:15 O2 Del Method Room Air 03/09/24 08:06 Documenting provider has reviewed patient's vital signs: yes Common normals: no apparent distress Respiratory Common normals: clear to auscultation bilaterally Cardio Common normals: regular rate and regular rhythm GI Common normals: Normal to inspection, nondistended, normoactive bowel sounds present Extremity Common normals: no calf tenderness OB - PN: A/P Plan - Vaginal Delivery day: 2 Plan: routine care, discharge home and follow up 6 weeks Time Spent with Patient Time: Total time spent is greater than 50% in coordination of care (as documented) at patient's floor/unit and/or counseling patient: Total time spent with greater than 50% in coordination of care (as documented) at patient's floor/unit and/or counseling patient: less than 15 minutes
[2024-03-09] MEDS: DOCUSATE SODIUM 100 MG CAPSULE PO (10:37)
== END 2024-03-09 14:30 | disposition home or self-care (01) | DRG 807 ==
PROVIDERS: Admitting Provider Obstetrics & Gynecology; Visit Provider Obstetrics & Gynecology
DX: O66.0 Obstructed labor due to shoulder dystocia (principal); Z37.0 Single live birth; O70.1 Second degree perineal laceration during delivery; Z3A.40 40 weeks gestation of pregnancy
CPT/HCPCS: 36415; 59050; 59410; 80307; 85025; 85027; 86850; 86900; 86901; J2300